=== PATIENT | male | born 1985 | race Caucasian/White ===

== ENCOUNTER 2023-05-13 11:48 | Emergency (ER) | payer MEDICAID ==
[~2023-05-13] VITALS: Ht 177.8 cm; Wt 82.3 kg
[~2023-05-13 11:48] MED LIST: NO HOME MEDS
[2023-05-13 12:11] VITALS: BP 127/94; PULSE 105; RESP 18; TEMP 98.6; O2SAT 96
--- NOTE | 2023-05-13 18:32 | NUR ---
CALLED AND SPOKE WITH PATIENT TO INFORM HIM OF POSITIVE COVID RESULTS. ACKNOWLEDGED AND SAID HE HAD ALSO DONE AHOME TEST THAT WAS POSITIVE.
== END 2023-05-13 18:42 | disposition left against medical advice (07) ==
LOC: ER 11:49
DX: M54.9 Dorsalgia, unspecified (principal); Z53.21 Procedure and treatment not carried out due to patient leaving prior to being seen by health care provider; Z20.822 Contact with and (suspected) exposure to COVID-19
CPT/HCPCS: 36415; 87502; 87503; 87811; 99281

== ENCOUNTER 2024-03-01 16:04 | Emergency (ER) | payer MEDICAID ==
[~2024-03-01] VITALS: Ht 180.3 cm; Wt 78.0 kg
[2024-03-01 16:06] VITALS: BP 131/94; PULSE 113; RESP 18; TEMP 97.6; O2SAT 98
[2024-03-01] MEDS ORDERED: ketorolac trometh. 30mg/ml inj. IM ONE (16:40)
[2024-03-01] MEDS ORDERED: ketorolac trometh. 30mg/ml inj. IV ONE (16:45)
[2024-03-01] MEDS ORDERED: LIDO700A32 TOP (16:52)
[2024-03-01] MEDS ORDERED: IBUP-862 PO (16:52)
[2024-03-01] MEDS ORDERED: HYDR-3965 PO (16:52)
[2024-03-01] MEDS: ketorolac tromethamine 15mg/ml inj. IV ONE (16:53)
== END 2024-03-01 17:14 | disposition home or self-care (01) ==
LOC: ER 16:08
DX: S20.214A Contusion of middle front wall of thorax, initial encounter (principal); Z79.1 Long term (current) use of non-steroidal anti-inflammatories (NSAID); Z79.899 Other long term (current) drug therapy; X58.XXXA Exposure to other specified factors, initial encounter; Y93.89 Activity, other specified; Y92.89 Other specified places as the place of occurrence of the external cause; Y99.8 Other external cause status
CPT/HCPCS: 71046; 96374; 99283; J1885

== ENCOUNTER 2024-05-28 18:53 | Emergency (ER) | payer MEDICAID ==
[~2024-05-28] VITALS: Ht 180.3 cm; Wt 83.6 kg
[~2024-05-28 18:53] MED LIST changes: +IBUP-862 PO; +LIDO700A32 TOP
[2024-05-28 19:08] VITALS: BP 148/112; PULSE 103; RESP 16; TEMP 99.3; O2SAT 99
[2024-05-28] MEDS ORDERED: CLIN-97 PO (19:22)
== END 2024-05-28 19:27 | disposition home or self-care (01) ==
LOC: ER 18:54
DX: K08.89 Other specified disorders of teeth and supporting structures (principal); F10.90 Alcohol use, unspecified, uncomplicated; Z79.1 Long term (current) use of non-steroidal anti-inflammatories (NSAID); Z79.899 Other long term (current) drug therapy; Z56.0 Unemployment, unspecified
CPT/HCPCS: 99283

== ENCOUNTER 2024-08-30 02:01 | Emergency (ER) | payer MEDICAID ==
[~2024-08-30] VITALS: Ht 177.8 cm; Wt 79.5 kg
[~2024-08-30 02:01] MED LIST changes: +CLIN-97 PO
[2024-08-30 02:04] VITALS: BP 144/101; PULSE 108; RESP 18; TEMP 97.8; O2SAT 97
== END 2024-08-30 04:15 | disposition left against medical advice (07) ==
LOC: ER 02:02
DX: M79.672 Pain in left foot (principal); M79.89 Other specified soft tissue disorders; Z53.21 Procedure and treatment not carried out due to patient leaving prior to being seen by health care provider

== ENCOUNTER 2025-05-06 22:21 | Emergency (ER) | payer MEDICAID ==
[~2025-05-06] VITALS: Ht 177.8 cm; Wt 81.7 kg
[~2025-05-06 22:21] MED LIST changes: +CLIN-224 PO; -CLIN-97 PO; +LIDO-52 TOP; -LIDO700A32 TOP
[2025-05-06 22:30] VITALS: BP 122/71; PULSE 89; RESP 20; TEMP 98.5; O2SAT 98
--- NOTE | 2025-05-06 23:07 | RADIOLOGY REPORT ---
CLINICAL INDICATION: LT.WRIST PAIN TECHNIQUE: DI WRIST, COMPLETE (3VW MIN) Comparison: None FINDINGS/IMPRESSION: : There is no evidence of acute fracture or dislocation. Soft tissues are unremarkable.
== END 2025-05-06 23:56 | disposition left against medical advice (07) ==
LOC: ER 22:22
DX: M25.532 Pain in left wrist (principal); Z53.21 Procedure and treatment not carried out due to patient leaving prior to being seen by health care provider; W19.XXXA Unspecified fall, initial encounter; Y93.89 Activity, other specified; Y92.89 Other specified places as the place of occurrence of the external cause; Y99.8 Other external cause status
CPT/HCPCS: 73110

== ENCOUNTER 2025-06-23 23:26 | Emergency (ER) | payer MEDICAID ==
[~2025-06-23] VITALS: Ht 177.8 cm; Wt 79.5 kg
[2025-06-23 23:31] VITALS: BP 138/98; PULSE 114; RESP 18; O2SAT 96
--- NOTE | 2025-06-24 00:55 | RADIOLOGY REPORT ---
CLINICAL INDICATION: ro fracture TECHNIQUE: Right DI ANKLE, COMPLETE(3VW MIN) Comparison: None FINDINGS/IMPRESSION: : There is no evidence of acute fracture or dislocation. Retrocalcaneal enthesopathy. Soft tissues are unremarkable.
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
[2025-06-24 01:09] VITALS: TEMP 98
== END 2025-06-24 01:12 | disposition home or self-care (01) ==
LOC: ER 23:26
DX: S93.401A Sprain of unspecified ligament of right ankle, initial encounter (principal); X58.XXXA Exposure to other specified factors, initial encounter; Y93.89 Activity, other specified; Y92.89 Other specified places as the place of occurrence of the external cause; Y99.8 Other external cause status
CPT/HCPCS: 73610; 99283

== ENCOUNTER 2025-08-13 10:33 | Emergency (ER) | payer MEDICAID ==
[~2025-08-13] VITALS: Ht 180.3 cm; Wt 84.1 kg
[2025-08-13 11:00] VITALS: BP 156/103; PULSE 115; RESP 18; TEMP 98.4; O2SAT 99
[2025-08-13] MEDS ORDERED: LIDO20SO16 PO (11:48)
[2025-08-13] MEDS ORDERED: IBUP600T52 PO (11:48)
[2025-08-13] MEDS ORDERED: AMOX-100 PO (11:48)
--- NOTE | 2025-08-13 11:48 | Physician Documentation ---
HPI ~ General Chief Complaint: Tooth Problem Stated Complaint: TOOTH PAIN Time Seen by MD: 11:42 Primary Medical Doctor: [facility] Source: patient Mode of Arrival: POV Exam Limitations: no limitations History of Present Illness HPI Comment 39-year-old male with poor dentition is scheduled to have dentures in September but has not noticed that his teeth are crumbling and falling apart. Causing severe pain to the right lower molar. Patient has noticed pain and swelling. No difficulty breathing or swallowing. Medication Reconciliation Allergies: Coded Allergies: No Known Allergies (Unverified , 08/13/25) Scheduled Amoxicillin Trihydrate (Amoxicillin), 1 CAP PO Q8H Clindamycin HCL* (Clindamycin HCL*), 1 CAP PO Q6H Ibuprofen (Ibu), 1 TAB PO Q6H Ibuprofen (Ibuprofen), 1 TAB PO Q8H Lidocaine (Lidoderm), 1 PATCH TOP DAILY Lidocaine Hcl (Xylocaine Viscous), 5 ML PO Q2H PRN SORE THROAT Miscellaneous Medications Home Med List (No Home Medications), (Reported) Past Medical History Past Medical History: No Pertinent History Past Surgical History: no surgical history Alcohol Use: Alcoholic Drug Use: none Lives with: Other Lives In: Home Occupation: unemployed Review of Systems All Other Systems at this time: Reviewed and Negative ENT: Reports: see HPI Physical Exam Vital Signs: RN Vital Signs have been reviewed: Yes, Temperature: 98.4, Source: Temporal, Heart Rate: 115, Respiratory Rate: 18, BP: 156/103, Pulse Oximetry: 99, Weight: 84.090 Oxygen Flow Rate: 0 Physical Exam General: Alert, no apparent distress. HEENT: moist mucous membranes. Multiple missing teeth and broken caries. Neck: Full range of motion. Respiratory: No respiratory distress speaking in full sentences Chest: No accessory muscle use. Cardiovascular: Appears well perfused Neurologic: Oriented x4. Psychiatric: Normal mood and affect. Skin: Normal color, warm and dry. No edema, no ecchymosis. Progress Results/Orders Results/Orders Vital Signs 08/13/25 11:00 Temp 98.4 Pulse 115 Resp 18 B/P (MAP) 156/103 Pulse Ox 99 O2 Flow Rate 0 Medical Decision Making Additional information obtaine: N/A Findings Twelve missing teeth no obvious abscess infection no facial swelling no lympha denopathy. Antibiotics prescribed and ibuprofen. Patient will follow up with dental Differential Dx:Considerations: Include: Alveolar fracture, ANUG, Facial Cellulitis, Pulpitis, Tooth Fracture, Other Departure Time of Disposition: 11:47 Disposition: 01 HOME / SELF CARE / HOMELESS Impression: Primary Impression: Toothache Additional Impressions: Dental caries Pain, dental Condition: Stable Discharge Instructions: Dental Caries, Adult Additional Instructions: Call dental tomorrow follow up as required Referrals: NO PRIMARY CARE PROVIDER (PCP) Prescriptions Ibuprofen (Ibuprofen) 600 Mg Tablet 1 TAB PO Q8H for pain for 10 Days, #30 TAB 0 Refills with food Prov: DIVINA ROQUE NP 08/13/25 Lidocaine Hcl (Xylocaine Viscous) 20 Ml Solution 5 ML PO Q2H PRN SORE THROAT, #100 ML Prov: DIVINA ROQUE NP 08/13/25 Amoxicillin Trihydrate (Amoxicillin) 500 Mg Capsule 1 CAP PO Q8H for 10 Days, #30 CAP Prov: DIVINA ROQUE NP 08/13/25 Education Educated: Patient Educated regarding: diagnosis, treatment, need for follow up Signature Scribe Signature: No scribe Attestation: The note accurately reflects work and decisions made by me.Divina YOU 08/13/25 11:48 DIVINA ROQUE NP Aug 13, 2025 11:48
[2025-08-15] MEDS ORDERED: BENZ5.1G TOP (10:15)
== END 2025-08-13 11:51 | disposition home or self-care (01) ==
LOC: ER 10:34
DX: K02.9 Dental caries, unspecified (principal); K08.89 Other specified disorders of teeth and supporting structures
CPT/HCPCS: 99283